=== PATIENT | female | born 1965 | race Caucasian/White ===

== ENCOUNTER → 2016-10-17 | Outpatient (REF) ==
[~2016-10-17] MED LIST: DIABETA 5MG5 MG/TAB; DITROPAN 5MG TAB5 MG PO; GLUCOPHAGE850 MG/TAB; PAXIL 30MG30 MG PO; PRILOSEC 20MG20 MG PO; PRINZIDE 12.5 M1 TA1 PO; PROVENTIL0.09 MG/A1 IH
== END ==
LOC: ZLAB.WCH 10:29
DX: Z01.89 Encounter for other specified special examinations (principal)

== ENCOUNTER → 2018-04-19 | Outpatient (CLI) | payer BC | LOC: SUN.DIA 08-17 09:24 | DX: E11.9 Type 2 diabetes mellitus without complications (principal); Z79.4 Long term (current) use of insulin | CPT/HCPCS: G0108 ==

== ENCOUNTER → 2018-06-21 | Outpatient (CLI) | payer BC | LOC: SUN.DIA | DX: E11.9 Type 2 diabetes mellitus without complications (principal); Z79.4 Long term (current) use of insulin | CPT/HCPCS: G0109 ==

== ENCOUNTER 2018-07-30 08:00 | Outpatient (RCR) | payer BC | END 2019-05-16 | LOC: MKS.ESL.PT | DX: I89.0 Lymphedema, not elsewhere classified (principal); L03.90 Cellulitis, unspecified ==

== ENCOUNTER → 2020-10-13 | Outpatient (CLI) | payer OTHER | LOC: ZLAB.WCH 17:35 | DX: Z01.89 Encounter for other specified special examinations (principal) ==

== ENCOUNTER → 2021-01-21 | Outpatient (CLI) | payer OTHER | LOC: ZLAB.WCHCL 16:05 | DX: Z01.89 Encounter for other specified special examinations (principal) ==

== ENCOUNTER → 2021-08-27 | Outpatient (CLI) | payer OTHER | LOC: ZCOL.LAB 11:33 | DX: L97.919 Non-pressure chronic ulcer of unspecified part of right lower leg with unspecified severity (principal) ==

== ENCOUNTER 2021-10-15 08:30 | Outpatient (RCR) | payer OTHER | END 2021-10-18 | disposition home or self-care (01) | LOC: WSPT | DX: I89.0 Lymphedema, not elsewhere classified (principal) ==

== ENCOUNTER 2021-11-03 08:30 | Outpatient (RCR) | payer OTHER | END 2021-11-15 | disposition home or self-care (01) | LOC: WSPT | DX: I89.0 Lymphedema, not elsewhere classified (principal) ==

== ENCOUNTER → 2022-05-13 | Outpatient (CLI) | payer OTHER | LOC: COL.RAD 12:40 | DX: M25.561 Pain in right knee (principal); M25.562 Pain in left knee | CPT/HCPCS: J3301; Q9967 ==

== ENCOUNTER 2022-11-18 15:17 | Emergency (ER) | payer OTHER ==
[~2022-11-18] VITALS: Ht 162.6 cm; Wt 125.0 kg
[2022-11-18 15:22] VITALS: BP 135/67; PULSE 59; TEMP 97.9
[2022-11-18] MEDS ORDERED: ASPIRIN 81M81 MG/TA2 PO (17:05)
[2022-11-18] MEDS ORDERED: BUMEX2 MG PO (17:06)
[2022-11-18] MEDS ORDERED: LIPITOR 80MG80 MG PO (17:06)
[2022-11-18] MEDS ORDERED: B-121000 MCG PO (17:07)
[2022-11-18] MEDS ORDERED: COREG 25MG25 MG/TAB PO (17:07)
[2022-11-18] MEDS ORDERED: VITAMIN D 50,1.25 MG PO (17:08)
[2022-11-18] MEDS ORDERED: FERROUS SU325 MG/TAB PO (17:12)
[2022-11-18] MEDS ORDERED: APRESOLINE50 MG PO (17:13)
[2022-11-18] MEDS ORDERED: IMDUR 30MG30 MG/TAB PO (17:13)
[2022-11-18] MEDS ORDERED: GLUCOPHAGE500 MG/TAB PO ×2 (17:14→17:15)
[2022-11-18] MEDS ORDERED: JARDIANCE25 PO (17:14)
[2022-11-18] MEDS ORDERED: MAG-OX 400400 MG/TAB PO (17:14)
[2022-11-18] MEDS ORDERED: ZAROXOLYN5 MG PO (17:16)
[2022-11-18] MEDS ORDERED: MULTI VITAMINS1 TAB PO (17:17)
[2022-11-18] MEDS ORDERED: MOUNJARO7.5 MG/0.5 SQ (17:17)
[2022-11-18] MEDS ORDERED: NOVOLOG MIX 70/33 ML SQ ×2 (17:17→17:18)
[2022-11-18] MEDS ORDERED: MIRAPEX0.5 MG PO (17:21)
[2022-11-20] MEDS ORDERED: DOXYCYCLINE 10100 MG PO (13:00)
== END 2022-11-18 15:48 ==
LOC: COL.ER 15:17
DX: R53.81 Other malaise (principal)